=== PATIENT | female | born 2000 | race Two or more races ===

== ENCOUNTER 2022-02-22 11:30 | Inpatient (IN) | payer OTHER ==
[~2022-02-22] VITALS: Ht 149.9 cm; Wt 47.6 kg
[2022-02-25] MEDS ORDERED: HORIZANT600 MG PO (10:45)
[2022-02-26] MEDS ORDERED: TIZANIDINE HCL4 MG (11:03)
[2022-02-26] MEDS ORDERED: GABAPENTIN600 MG (11:03)
[2022-02-26] MEDS ORDERED: ETODOLAC400 MG (11:03)
[2022-02-26] MEDS ORDERED: TRI-PREVIFEM T1 EACH (11:07)
[2022-02-26] MEDS ORDERED: COLACE100 MG PO (11:29)
[2022-02-26] MEDS ORDERED: PERCOCET 5-3251 EACH PO (11:30)
[2022-02-26] MEDS ORDERED: AMOX-CLAV 875-1 EACH PO (11:30)
[2022-02-26] MEDS ORDERED: NEURONTIN800 MG PO (11:30)
[2022-02-26] MEDS ORDERED: MEDROLPACK PO (11:30)
== END 2022-02-27 11:06 | disposition home or self-care (01) | DRG 520 ==
LOC: O/R 02-26 07:16 → SURG 02-26 07:16 → SURH 02-26 08:45 → SURG 02-26 15:26 → SURH 02-26 19:00 → SURG 02-27 11:06
PROVIDERS: ADMIT Orthopaedic Surgery Orthopaedic Surgery of the Spine; ATTEND Orthopaedic Surgery Orthopaedic Surgery of the Spine
PROC: 00JU0ZZ Inspection of Spinal Canal, Open Approach (ICD-10-PCS; 2022-02-26)
PROC: 0SB40ZZ Excision of Lumbosacral Disc, Open Approach (ICD-10-PCS; principal; 2022-02-26 19:00)
DX: M51.17 Intervertebral disc disorders with radiculopathy, lumbosacral region (principal); Z86.16 Personal history of COVID-19

== ENCOUNTER → 2025-07-28 | Emergency (ER) | payer OTHER ==
[~2025-07-28] VITALS: Ht 149.9 cm; Wt 49.9 kg
[~2025-07-28] MED LIST: 0.9 % SODIUM CHLORIDE 1,000 ML IV SCH; ACETAMINOPHEN 500 MG GEL..CAP PO ONE; ACETAMINOPHEN 500 MG GEL..CAP PO PRN; AMOX-CLAV 875-1 EACH PO; CEFTRIAXONE SODIUM 2,000 MG VIAL IV ONE; CEFTRIAXONE SODIUM 2,000 MG VIAL ONE; COLACE100 MG PO; DEXAMETHASONE SODIUM PHOSP/PF 10 MG/ML VIAL IV ONE; DEXAMETHASONE SODIUM PHOSPHATE 4 MG/ML VIAL ONE; ETODOLAC400 MG; GABAPENTIN600 MG; HORIZANT600 MG PO; KETOROLAC TROMETHAMINE 30 MG VIAL IV ONE; KETOROLAC TROMETHAMINE 30 MG VIAL ONE; MEDROLPACK PO; METHYLPREDNISOLONE SOD SUCC 125 MG VIAL IV ONE; METHYLPREDNISOLONE SOD SUCC 125 MG VIAL ONE; NEURONTIN800 MG PO; PERCOCET 5-3251 EACH PO; PIPERACILLIN/TAZOBACTAM SODIUM 3.375 GM VIAL IV ONE; PIPERACILLIN/TAZOBACTAM SODIUM 3.375 GM in DEXTROSE 5 % IN WATER 100 ML IV ONE; TIZANIDINE HCL4 MG; TRI-PREVIFEM T1 EACH
[2025-07-28 17:55] LABS: BASO % 0.2 % (0.1-1.2); EOS # 0.01 (0.04-0.54); EOS % 0.0 % (0.7-7.0); LYMPH # 1.42 (1.18-3.74); LYMPH % 6.9 % (19.3-53.1); MEAN PLATELET VOLUME 11.10 fl (9.4-12.4); MONO # 1.24 (0.24-0.82); MONO % 6.1 % (4.7-12.5); NEUT # 17.67 (1.56-6.13); NEUT % 86.4 % (34.0-71.1); RED CELL DISTRIBUTION WIDTH 14.0 % (11.6-14.4)
[2025-07-28 18:15] LABS: ERYTHROCYTE SEDIMENTATION RATE 1745 mm/hr (0-20)
[2025-07-28 18:23] LABS: ALT/SGPT 13.0 U/L (12-78); AST/SGOT 15.0 U/L (15-37); BILIRUBIN TOTAL 0.4 mg/dL (0.3-1.2); BUN CREA RATIO 9.0 (7.0-25.0); CREATININE SERUM 0.91 mg/dL (0.55-1.02); GFR 74.72; GLOBULINA 3.4 G/DL (2.4-3.5); GLUCOSE FASTING 91.0 mg/dL (65-100); OSMOLALITY SERUM 272.0 MOSM/KG (275-295)
[2025-07-28 23:19] VITALS: BP 97/61; O2SAT 100
== END | disposition home or self-care (01) ==
LOC: ER 16:36
PROVIDERS: General Practice
DX: J36 Peritonsillar abscess (principal)